=== PATIENT | male | born 1985 | race Caucasian/White ===

== ENCOUNTER → 2018-09-29 | Outpatient (REF) | payer OTHER | LOC: M LAB LCGH 14:49 | PROVIDERS: ATTEND Surgery | DX: S81.811A Laceration without foreign body, right lower leg, initial encounter (principal) ==

== ENCOUNTER → 2024-03-10 | Outpatient (CLI) | payer BC | LOC: M RAD 15:50 | PROVIDERS: ATTEND Physician Assistant | DX: J32.8 Other chronic sinusitis (principal) ==